=== PATIENT | male | born 1970 | race Caucasian/White ===

== ENCOUNTER 2020-02-25 06:27 | Day surgery (SDC) | payer MEDICARE, OTHER ==
[~2020-02-25] VITALS: Ht 180.3 cm; Wt 95.5 kg
[~2020-02-25 06:27] MED LIST: ALBU8HFA PO; FLUT16H PO; MONT10TA26 PO; OMEP20CA12 PO; SODIUM CHLORIDE 0.9% 1,000 ML IV ONE; TAMS-13 PO
[2020-02-25 06:49] LABS: COVID AG,FIA SOURCE NASOPHARYNGEAL
[2020-02-25] MEDS ORDERED: SODIUM CHLORIDE 0.9% 1,000 ML ONE (06:59)
[2020-02-25] MEDS ORDERED: MIDAZOLAM HCL 2 MG/2 ML VIAL ONE (07:40)
[2020-02-25] MEDS ORDERED: FentaNYL CITRATE-PF 100 MCG/2 ML VIAL ONE (07:41)
[2020-02-25] MEDS ORDERED: MethylPREDNISolone SOD SUCC 125 MG/2 ML VIAL IVP ONE (08:30)
[2020-02-25] MEDS ORDERED: MethylPREDNISolone SOD SUCC 125 MG/2 ML VIAL ONE (08:54)
[2020-02-25] MEDS ORDERED: OXYGEN THERAPY IH SCH (20:00)
== END 2020-02-25 10:00 | disposition home or self-care (01) ==
LOC: SURGERY 06:27
PROVIDERS: ATTEND Internal Medicine Critical Care Medicine
DX: J38.4 Edema of larynx (principal); B37.0 Candidal stomatitis; Z20.828 Contact with and (suspected) exposure to other viral communicable diseases; Z86.11 Personal history of tuberculosis
CPT/HCPCS: 31623; 31624; 71045; 87015; 87070; 87101; 87205; 87206; 87220; 87426; 88108; 88312; C9803; J2250; J2930; J3010; J7030